=== PATIENT | male | born 1980 | race Caucasian/White ===

== ENCOUNTER 2016-07-16 09:27 | Emergency (ER) | payer OTHER ==
[~2016-07-16] VITALS: Ht 170.2 cm; Wt 75.0 kg
[2016-07-16 09:29] VITALS: BP 126/89; PULSE 101; RESP 18; O2SAT 98
--- NOTE | 2016-07-16 09:45 | ED.REPORT ---
HPI-General Illness Date of Service Jul 16, 2016 ED Provider: Mehrdad Talbot MD This is a 36 year old male presenting to the ED seeking evaluation for alcohol detox, he has a bed at [facility] which the pt scheduled today. Also reports heroin and methamphetamine use. Denies fever, nausea, vomiting, diarrhea , cough, sore throat, abdominal pain, or headache. Denies suicidal or homicidal ideation. Nursing Notes Stated Complaint: CRISIS CENTER BED AT 11 AM Chief Complaint: Substance Abuse Nursing Notes Reviewed: Yes Allergies: Coded Allergies: Penicillins (Verified Allergy, Severe, 07/16/16) General Time Seen by MD: 09:43 Chief Complaint Other Hx Obtained From: Patient Arrived By: Walk-in Sudden in Onset?: Yes Symptom Duration: Since onset Severity: Current: No pain currently Pertinent Negative: Pt denies other symptoms Recent Healthcare: No recent doctor visit, No recent hospitalization Similar Sx Previous: No Past Medical History Past Medical History Polysubstance abuse Alcohol abuse Smoking History Current Every Day Smoker Social History Heroin Alcohol Use: >5 per day Drug Use: Meth Ambulatory Status Independent Review of Systems Full Review of Systems Constitutional: Denies: Chills, Fever Respiratory: Denies: Non-productive cough, Shortness of breath GI: Denies: Abdominal pain, Nausea, Vomiting Neurologic: Denies: Headache Psychiatric: Denies: Homicidal ideation, Suicidal ideation Complete sys rev & neg: except as marked. Physical Exam Vital Signs Vital Signs Date Time Temp Pulse Resp B/P Pulse Ox O2 Delivery O2 Flow Rate FiO2 07/16/16 09:29 36.3 101 18 126/89 98 Room Air Initial VS: Reviewed Head / Eyes: Atraumatic, Normocephalic, PERRL ENT: Mucous membranes moist, Conjunctiva normal, No scleral icterus Neck: Supple, Non-tender, Full range of motion Respiratory: Breath sounds normal, Clear to auscultation, No respiratory distress Cardiovascular: Regular rate & rhythm, Heart sounds normal, Intact distal pulses Extremities: Vascular intact, Neuro intact, No swelling, No tenderness Skin: Warm, Dry, No cyanosis Neurologic: Alert, Oriented, Nonfocal Psychiatric: Mood/affect normal, Behavior normal, Normal thought content General/Constitutional: Awake, Alert Re-Eval/Medical Decision Counseled Regarding: Diagnosis, Need for follow-up, When/why to return to ED Discharge & Departure Primary Impression: Alcohol abuse Additional Impression: Depression Depression Type: unspecified Qualified Code: F32.9 - Major depressive disorder, single episode, unspecified Disposition: Home Discharge Condition All VS Reviewed: Yes Condition: Stable Patient Instructions: Abuse of Alcohol (ED) Additional Instructions: Go directly to [facility]. Take Ativan (lorazepam) as prescribed. Return to the emergency department for any new or worsening symptoms Referrals: Kg Cuevas MD (PCP) Scribe Attestation Portions of this note were transcribed by Nika Gao. I, Dr. Talbot personally performed the history, physical exam and medical decision-making; I reviewed and confirmed the accuracy of the information in the transcribed note. Signed by: danya Dykes. 07/16/2016, 10:00. Mehrdad Talbot MD Jul 16, 2016 09:45 NIKA GAO Jul 16, 2016 09:54
[2016-07-16] MEDS ORDERED: LORA-303 PO (10:21)
[2016-07-16 10:52] VITALS: BP 108/67; PULSE 85; RESP 16; O2SAT 97
== END 2016-07-16 10:55 | disposition home or self-care (01) ==
LOC: SED 09:27
DX: F10.10 Alcohol abuse, uncomplicated (principal); F32.9 Major depressive disorder, single episode, unspecified; F17.210 Nicotine dependence, cigarettes, uncomplicated; Z88.0 Allergy status to penicillin

== ENCOUNTER 2016-11-18 07:59 | Emergency (ER) | payer OTHER ==
[~2016-11-18] VITALS: Ht 170.2 cm; Wt 72.7 kg
[~2016-11-18 07:59] MED LIST: LORA-303 PO
[2016-11-18 08:03] VITALS: BP 125/75; PULSE 93; RESP 18; O2SAT 96
--- NOTE | 2016-11-18 08:23 | ED.REPORT ---
HPI-General Illness Date of Service November 18, 2016 ED Provider: Jayashree Wisdom MD Patient is a 36 year old male with a history of polysubstance abuse and alcohol withdraw who presents to the ED to get medical clearance for [facility]. The patient reports that his last drink of alcohol was yesterday. He normally drinks a fifth a day, uses a 1/2gram of heroin, intermittent meth and benzodiazepines but hasn't used them for the past 4 days. Patient states that he has gone through alcohol withdraw and been through detox a few years ago. Nursing Notes Stated Complaint: CRISIS CENTER CLEARANCE Chief Complaint: Substance Abuse Nursing Notes Reviewed: Yes Allergies: Coded Allergies: Penicillins (Verified Allergy, Severe, 07/16/16) Scheduled Clonidine (Clonidine) 0.1 Mg Tablet 0.1 MG PO HS PRN for opiate withdrawal. hold BP<120/60 or HR<60 Loperamide (Loperamide) 2 Mg Capsule 2 MG PO Q4H Ondansetron ODT (Ondansetron ODT) 4 Mg Tab.rapdis 4 MG PO BID Scheduled PRN Alprazolam (Alprazolam) 1 Mg Tablet 1 MG PO see taper PRN PRN For Anxiety 1 PO q 6 hrs x 24 hrs. 1 po q 8 hrs x 24hrs 1 po q 12hrs x 24hrs Ibuprofen (Ibuprofen) 600 Mg Tablet 600 MG PO QID PRN PRN For Pain Lorazepam (Ativan) 1 Mg Tablet 1 MG PO TID PRN PRN For Anxiety Promethazine Supp (Promethazine Supp) 25 Mg Supp 25 MG RECTAL Q8H PRN PRN For Nausea General Time Seen by MD: 08:23 Chief Complaint Medical clearance Hx Obtained From: Patient Arrived By: Walk-in Sudden in Onset?: Yes Onset Occurred: Yesterday Context of Onset: EtOH use Symptom Duration: Since onset Recent Healthcare: No recent hospitalization, Recent doctor visit Similar Sx Previous: Yes Past Medical History Past Medical History Polysubstance abuse Alcohol abuse Smoking History Current Every Day Smoker Social History Heroin Alcohol Use: >5 per day Drug Use: IV drugs, Meth Ambulatory Status Independent Review of Systems Alcohol withdraw heroin withdraw Full Review of Systems Respiratory: Denies: Non-productive cough, Shortness of breath Cardiovascular: Denies: Chest pain GI: Denies: Abdominal pain, Vomiting Complete sys rev & neg: except as marked. Physical Exam Vital Signs Vital Signs Date Time Temp Pulse Resp B/P Pulse Ox O2 Delivery O2 Flow Rate FiO2 11/18/16 10:04 36.4 83 14 108/67 96 Room Air 11/18/16 08:58 83 14 108/67 96 Room Air 11/18/16 08:03 36.4 93 18 125/75 96 Initial VS: Reviewed General/Constitutional: Awake, Alert poor eye contact Head / Eyes: Atraumatic, Normocephalic, PERRL, EOMI Respiratory / Chest: Atraumatic, Breath sounds NL, Breath sounds = bilat, No respiratory distress Cardiovascular: Regular rhythm, Heart sounds NL Heart Rate / Rhythm: Positive: Tachycardia Upper Extremities Upper Extremity / MS: Atraumatic, Full range of motion multiple track cisneros with no abscess on forearms Skin: Atraumatic, Color NL, No rash, Warm, Dry Neurologic: Oriented X3, Speech NL, No motor deficits, No sensory deficits Psychiatric: Affect NL, Mood NL Interpretation & Diagnostics Lab Results Interpretation Lab Results Interpretation: Tox screen: positive for opiates, THC, methamphetamines and benzodiazepines Re-Eval/Medical Decision Time of Eval: 08:55 Re-Evaluation/Progress Note: Discussed plan for transfer to [facility] during initial interview. The patient understands and agrees to the plan. All questions were addressed. Counseled Regarding: Diagnosis, Lab results, Need for follow-up, When/why to return to ED Discharge & Departure Primary Impression: Alcohol withdrawal Complication of substance-induced condition: with unspecified complication Qualified Code: F10.239 - Alcohol dependence with withdrawal, unspecified Additional Impression: Polysubstance abuse Disposition: Home Discharge Condition All VS Reviewed: Yes Condition: Stable Patient Instructions: Abuse of Alcohol (ED), Alcohol Withdrawal (ED) Additional Instructions: You are cleared to go to [facility]. Your prescriptions were electronically sent to the [facility] in [place]. Hopefully you will find treatment helpful in getting to sober. I've given you information to contact [facility], suboxone clinic, to help with the heroin issues once you have detoxed from alcohol. Good luck! Referrals: Kg Cuevas MD (PCP) Scribe Attestation Portions of this note were transcribed by Stacie Marie. I, Dr. Wisdom personally performed the history, physical exam and medical decision-making; I reviewed and confirmed the accuracy of the information in the transcribed note. Signed by: Elli Medina, 11/18/16 and 0904 copies to: Kg Cuevas MD, Shawna L MD November 18, 2016 08:23 Magdalene Marie November 18, 2016 08:56
[2016-11-18 08:58] VITALS: BP 108/67; PULSE 83; RESP 14; O2SAT 96
[2016-11-18] MEDS ORDERED: LORazepam 1 mg Tablet PO ONE (09:05)
[2016-11-18] MEDS ORDERED: ALPR1TAB7 PO (09:59)
[2016-11-18] MEDS ORDERED: ONDA4TAB12 PO (09:59)
[2016-11-18] MEDS ORDERED: IBUP-1827 PO (09:59)
[2016-11-18] MEDS ORDERED: CLON0.1T PO (09:59)
[2016-11-18] MEDS ORDERED: PROM25SU47 RECTAL (09:59)
[2016-11-18] MEDS ORDERED: LOPE2CAP PO (09:59)
[2016-11-18 10:04] VITALS: BP 108/67; PULSE 83; RESP 14; O2SAT 96
== END 2016-11-18 10:05 | disposition home or self-care (01) ==
LOC: SED 07:59
DX: F10.239 Alcohol dependence with withdrawal, unspecified (principal); F19.10 Other psychoactive substance abuse, uncomplicated; F17.200 Nicotine dependence, unspecified, uncomplicated; Z88.0 Allergy status to penicillin

== ENCOUNTER 2016-11-21 20:29 | Emergency (ER) | payer OTHER ==
[~2016-11-21] VITALS: Ht 170.2 cm; Wt 72.7 kg
[~2016-11-21 20:29] MED LIST changes: +ALPR1TAB7 PO; +CLON0.1T PO; +IBUP-1827 PO; +LOPE2CAP PO; +ONDA4TAB12 PO; +PROM25SU47 RECTAL
[2016-11-21 20:38] VITALS: BP 113/76; PULSE 109; RESP 16; O2SAT 97
--- NOTE | 2016-11-21 21:13 | ED.REPORT ---
HPI-General Illness Date of Service November 21, 2016 ED Provider: Lamont Gordon MD A 36 year old male with a history of polysubstance abuse and current rehabilitation effort presents to the ED due to a medication request. The pt has been in Crisis for three days due to substance abuse including benzodiazepines, methamphetamine and heroin. He has been taking Clonidine twice daily but has still been unable to sleep and has been nauseated. He is requesting medications to help alleviate these symptoms. The pt has further rehabilitation scheduled beginning on 11/27/2016. Nursing Notes Stated Complaint: MED REQUEST Chief Complaint: Substance Abuse Nursing Notes Reviewed: Yes Allergies: Coded Allergies: Penicillins (Verified Allergy, Severe, 11/21/16) Scheduled Clonidine (Clonidine) 0.1 Mg Tablet 0.1 MG PO HS PRN for opiate withdrawal. hold BP<120/60 or HR<60 Loperamide (Loperamide) 2 Mg Capsule 2 MG PO Q4H Ondansetron ODT (Ondansetron ODT) 4 Mg Tab.rapdis 4 MG PO BID Scheduled PRN Alprazolam (Alprazolam) 1 Mg Tablet 1 MG PO see taper PRN PRN For Anxiety 1 PO q 6 hrs x 24 hrs. 1 po q 8 hrs x 24hrs 1 po q 12hrs x 24hrs Clonidine (Clonidine) 0.2 Mg Tablet 0.2 MG PO TID PRN PRN Withdrawal Symptoms Ibuprofen (Ibuprofen) 600 Mg Tablet 600 MG PO QID PRN PRN For Pain Ibuprofen (Ibuprofen) 600 Mg Tablet 600 MG PO QID PRN PRN For Pain Lorazepam (Ativan) 1 Mg Tablet 1 MG PO TID PRN PRN For Anxiety Ondansetron ODT (Ondansetron ODT) 8 Mg Tab.rapdis 8 MG PO QID PRN PRN For Nausea Promethazine Supp (Promethazine Supp) 25 Mg Supp 25 MG RECTAL Q8H PRN PRN For Nausea hydrOXYzine Hcl (HydrOXYzine Hcl) 25 Mg Tablet 50 MG PO TID PRN PRN anxiety General Time Seen by MD: 21:13 Chief Complaint Other (Medication request) Hx Obtained From: Patient Arrived By: Walk-in Sudden in Onset?: No Recent Healthcare: Recent doctor visit Similar Sx Previous: Yes Past Medical History Past Medical History Polysubstance abuse Alcohol abuse Past Surgical History left shoulder Smoking History Current Every Day Smoker Social History Heroin Benzodiazepines Alcohol Use: >5 per day Drug Use: IV drugs, Meth Ambulatory Status Independent Review of Systems Full Review of Systems Respiratory: Denies: Non-productive cough, Shortness of breath Cardiovascular: Denies: Chest pain GI: Reports: Nausea, Denies: Abdominal pain Musculoskeletal: Denies: Back pain Psychiatric: Reports: Insomnia Complete sys rev & neg: except as marked. Physical Exam Vital Signs Vital Signs Date Time Temp Pulse Resp B/P Pulse Ox O2 Delivery O2 Flow Rate FiO2 11/21/16 20:38 36.3 109 16 113/76 97 Room Air Initial VS: Reviewed General/Constitutional: Awake, Alert Head / Eyes: Atraumatic, Normocephalic, PERRL, EOMI ENT: Atraumatic, Airway patent, Mucous membranes moist Neck: Atraumatic, Supple, Full range of motion Respiratory / Chest: Atraumatic, No respiratory distress Cardiovascular: Heart rate NL Abdomen: Atraumatic Back: Atraumatic, Full range of motion Upper Extremities Upper Extremity / MS: Atraumatic, Full range of motion Lower Extremity / Pelvis / MS: Atraumatic, Full range of motion Skin: Atraumatic, Color NL, No rash, Warm, Dry Neurologic: Oriented X3, Speech NL, No motor deficits, No sensory deficits Psychiatric: Affect NL, Mood NL, No hallucinations, Judgment/insight NL no apparent delusions Re-Eval/Medical Decision Med Decision/Clinical Course 36-year-old withdrawing from opiates, not getting sufficient relief with clonidine at low dose at crisis. Clonidine dose increased to 0.2-3 times daily when necessary, along with Vistaril for sleep. Continue ondansetron as before. Ibuprofen if needed for aches and pains. Return to crisis Source of Hx: Old records Time of Eval: 21:13 Patient Status: Condition improved Re-Evaluation/Progress Note: Pt informed of the diagnosis and the plan for discharge during the initial interview. The pt understands and agrees with the plan. All questions are addressed at this time. Counseled Regarding: Diagnosis, Need for follow-up, When/why to return to ED Discharge & Departure Primary Impression: Substance abuse Additional Impression: Opioid withdrawal Disposition: Home Discharge Condition All VS Reviewed: Yes Condition: Stable Patient Instructions: Opioid Withdrawal (ED) Additional Instructions: Begin clonidine up to three times daily as needed for withdrawal symptoms. Hydroxyzine three times daily as needed for anxiety or sleep Zofran up to four times daily if needed for nausea Ibuprofen as needed for pain Good luck with your recovery. Referrals: [facility] Scribe Attestation Portions of this note were transcribed by Mayra Humphrey. I, Dr. Gordon personally performed the history, physical exam and medical decision-making; I reviewed and confirmed the accuracy of the information in the transcribed note. Signed by: Elli Ragsdale, 11/21/16 and 2131. copies to: [facility] ; [facility] Lamont Gordon MD November 21, 2016 21:13 MAYRA HUMPHREY November 21, 2016 21:23
[2016-11-21] MEDS ORDERED: _Ondansetron ODT 4 mg Tablet PO PRN (21:20)
[2016-11-21] MEDS ORDERED: CLON0.2T PO (21:23)
[2016-11-21] MEDS ORDERED: HYDR-656 PO (21:25)
[2016-11-21] MEDS ORDERED: IBUP-1827 PO (21:25)
[2016-11-21] MEDS ORDERED: ONDA8TAB10 PO (21:26)
== END 2016-11-21 21:37 | disposition home or self-care (01) ==
LOC: SED 20:29
DX: F11.23 Opioid dependence with withdrawal (principal); F19.10 Other psychoactive substance abuse, uncomplicated; F17.200 Nicotine dependence, unspecified, uncomplicated; Z88.0 Allergy status to penicillin
CPT/HCPCS: 99283; Q0177

== ENCOUNTER 2017-02-24 20:34 | Emergency (ER) | payer OTHER ==
[~2017-02-24] VITALS: Ht 170.2 cm; Wt 72.0 kg
[~2017-02-24 20:34] MED LIST changes: +CLON0.2T PO; +HYDR-656 PO; +ONDA8TAB10 PO
[2017-02-24 20:41] VITALS: BP 138/81; PULSE 107; RESP 20; O2SAT 96
--- NOTE | 2017-02-24 21:09 | ED.REPORT ---
HPI-General Illness Date of Service Feb 24, 2017 ED Provider: Mateusz Vail DO Pt is a 37 y/o male with a history of meth and heroin abuse who presents to the ED with a substance relapse onset 7 days ago. He states he was at the ED on November 17, 2016 for prior substance abuse, in which he was sent to [facility] for a 10-day detox and received one-month treatment. He reports that he was sober for three months after treatment, but relapsed due to stressful events in his life. He wishes to go to [facility] to undergo detox again. He denies homicidal or suicidal ideation. Nursing Notes Stated Complaint: DETOX Chief Complaint: Substance Abuse Nursing Notes Reviewed: Yes Allergies: Coded Allergies: Penicillins (Verified Allergy, Severe, 11/21/16) Scheduled Clonidine (Clonidine) 0.1 Mg Tablet 0.1 MG PO HS PRN for opiate withdrawal. hold BP<120/60 or HR<60 Loperamide (Loperamide) 2 Mg Capsule 2 MG PO Q4H Ondansetron ODT (Ondansetron ODT) 4 Mg Tab.rapdis 4 MG PO BID Scheduled PRN Alprazolam (Alprazolam) 1 Mg Tablet 1 MG PO see taper PRN PRN For Anxiety 1 PO q 6 hrs x 24 hrs. 1 po q 8 hrs x 24hrs 1 po q 12hrs x 24hrs Clonidine (Clonidine) 0.2 Mg Tablet 0.2 MG PO TID PRN PRN Withdrawal Symptoms Ibuprofen (Ibuprofen) 600 Mg Tablet 600 MG PO QID PRN PRN For Pain Ibuprofen (Ibuprofen) 600 Mg Tablet 600 MG PO QID PRN PRN For Pain Lorazepam (Ativan) 1 Mg Tablet 1 MG PO TID PRN PRN For Anxiety Ondansetron ODT (Ondansetron ODT) 8 Mg Tab.rapdis 8 MG PO QID PRN PRN For Nausea Promethazine Supp (Promethazine Supp) 25 Mg Supp 25 MG RECTAL Q8H PRN PRN For Nausea hydrOXYzine Hcl (HydrOXYzine Hcl) 25 Mg Tablet 50 MG PO TID PRN PRN anxiety General Time Seen by MD: 21:09 Chief Complaint Other (substance abuse) Hx Obtained From: Patient Arrived By: Walk-in Sudden in Onset?: No Onset Occurred: 1 week ago Severity: Current: No pain currently Severity: Maximum: No pain Context Related History: Reports Drug use/abuse suspected Recent Healthcare: No recent doctor visit, No recent hospitalization Similar Sx Previous: Yes Past Medical History Past Medical History Polysubstance abuse Alcohol abuse Past Surgical History left shoulder Smoking History Current Every Day Smoker Social History Heroin Benzodiazepines Alcohol Use: >5 per day Drug Use: IV drugs, Meth Ambulatory Status Independent Review of Systems Substance abuse Full Review of Systems Psychiatric: Denies: Homicidal ideation, Suicidal ideation Complete sys rev & neg: except as marked. Physical Exam Vital Signs Vital Signs Date Time Temp Pulse Resp B/P Pulse Ox O2 Delivery O2 Flow Rate FiO2 02/25/17 00:13 36.7 83 118/85 95 Room Air 02/24/17 20:41 36.6 107 20 138/81 96 Room Air Initial VS: Reviewed Head / Eyes: Atraumatic, Normocephalic Neck: Supple, Full range of motion Extremities: Vascular intact, Neuro intact, No swelling, No tenderness Skin: Warm, Dry, No cyanosis Neurologic: Alert, Oriented, Nonfocal General/Constitutional: Awake, Alert Respiratory / Chest: Atraumatic, Breath sounds NL, Breath sounds = bilat, No respiratory distress Cardiovascular: Heart rate NL, Regular rhythm, Heart sounds NL Abdomen: Soft, Non-tender Psychiatric: Affect NL, Mood NL Abnormal Mood/Affect: Positive: Anxious Interpretation & Diagnostics Lab Results Interpretation Test 02/24/17 22:20 Hold Urine Received (Received) Re-Eval/Medical Decision Med Decision/Clinical Course Patient is moderately anxious, but considered medically stable to go to [facility]. There will be a male bed available at roughly 9 AM. Rudy will call out there first thing in the morning or come back to the emergency department for assistance in getting sobering services. He is given a single dose of lorazepam and helped his anxiety. He assures me he does not plan on abusing opiates tonight. He will come back as instructed. Warnings given. Source of Hx: Old records Time of Eval: 20:20 Patient Status: Condition improved Re-Evaluation/Progress Note: Pt rechecked. He is resting comfortably. Counseled Regarding: Diagnosis, Lab results, Need for follow-up, When/why to return to ED Discharge & Departure Shift Change Sign-Out Response to Therapy: Improved Primary Impression: Heroin abuse Additional Impression: Amphetamine abuse Disposition: Home Discharge Condition All VS Reviewed: Yes Condition: Stable Patient Instructions: Methamphetamine Abuse (DC), Opioid Dependence (DC) Additional Instructions: Rest tonight. You have received sedating medications so do not drive. Do not use any more heroin as the combination of lorazepam and heroin can be life- threatening. Do not abuse methamphetamines. Come back to the emergency department at 8 AM for screening for sobering services. They will apparently have a bed available for you at 9 AM. You can also call out there and see if they will take him directly but if you come back here we may be able to assist pharmacologically. Do not hesitate to return if you feel that you are having a psychiatric or medical emergency. Also, you may call [facility] if you believe you are suffering from opioid dependence. Referrals: [facility] (PCP) [facility] Scribe Attestation Portions of this note were transcribed by Erika Christensen. I, Dr. Vail, personally performed the history, physical exam and medical decision-making; I reviewed and confirmed the accuracy of the information in the transcribed note. copies to: Mateusz Duvall DO Feb 24, 2017 21:09 Erika Christensen Feb 24, 2017 21:20
[2017-02-24] MEDS ORDERED: LORazepam 1 mg Tablet PO ONE (21:20)
[2017-02-25 00:13] VITALS: BP 118/85; PULSE 83; O2SAT 95
[2017-02-25] MEDS ORDERED: LORA-303 PO (11:24)
[2017-02-25] MEDS ORDERED: CLON0.1T PO (11:24)
[2017-02-25] MEDS ORDERED: ONDA4TAB9 PO (11:24)
== END 2017-02-25 00:15 | disposition home or self-care (01) ==
LOC: SED 20:34
DX: F11.10 Opioid abuse, uncomplicated (principal); F15.10 Other stimulant abuse, uncomplicated; F41.9 Anxiety disorder, unspecified; F17.200 Nicotine dependence, unspecified, uncomplicated; Z98.890 Other specified postprocedural states; Z88.0 Allergy status to penicillin

== ENCOUNTER 2017-02-25 08:03 | Emergency (ER) | payer OTHER ==
[~2017-02-25] VITALS: Ht 170.2 cm; Wt 77.3 kg
[2017-02-25 08:09] VITALS: BP 111/75; PULSE 74; RESP 16; O2SAT 100
--- NOTE | 2017-02-25 09:56 | ED.REPORT ---
HPI-Overdose/Alcohol Toxicity Date of Service Feb 25, 2017 ED Provider: Gerson Reyes DO Pt is a 37 y/o male w/ a hx of polysubstance abuse presenting to the ED with request for medical clearance for detox. The patient uses heroin and is requesting to be medically cleared prior to entering a detox facility. No significant symptoms of withdrawal at this time. Nursing Notes Stated Complaint: DETOX Chief Complaint: Substance Abuse Nursing Notes Reviewed: Yes Allergies: Coded Allergies: Penicillins (Verified Allergy, Severe, 11/21/16) Scheduled Clonidine (Clonidine) 0.1 Mg Tablet 0.1 MG PO HS PRN for opiate withdrawal. hold BP<120/60 or HR<60 Clonidine (Clonidine) 0.1 Mg Tablet 0.1 MG PO TID Loperamide (Loperamide) 2 Mg Capsule 2 MG PO Q4H Ondansetron ODT (Ondansetron ODT) 4 Mg Tab.rapdis 4 MG PO BID Scheduled PRN Alprazolam (Alprazolam) 1 Mg Tablet 1 MG PO see taper PRN PRN For Anxiety 1 PO q 6 hrs x 24 hrs. 1 po q 8 hrs x 24hrs 1 po q 12hrs x 24hrs Clonidine (Clonidine) 0.2 Mg Tablet 0.2 MG PO TID PRN PRN Withdrawal Symptoms Ibuprofen (Ibuprofen) 600 Mg Tablet 600 MG PO QID PRN PRN For Pain Ibuprofen (Ibuprofen) 600 Mg Tablet 600 MG PO QID PRN PRN For Pain Lorazepam (Ativan) 1 Mg Tablet 1 MG PO TID PRN PRN For Anxiety Lorazepam (Ativan) 1 Mg Tablet 1 MG PO TID PRN PRN For Anxiety Ondansetron ODT (Ondansetron ODT) 8 Mg Tab.rapdis 8 MG PO QID PRN PRN For Nausea Ondansetron ODT (Zofran ODT) 4 Mg Tablet 4 MG PO Q4H PRN PRN For Nausea Promethazine Supp (Promethazine Supp) 25 Mg Supp 25 MG RECTAL Q8H PRN PRN For Nausea hydrOXYzine Hcl (HydrOXYzine Hcl) 25 Mg Tablet 50 MG PO TID PRN PRN anxiety General Time Seen by Provider: 10:20 Chief Complaint Other (detox) Hx Obtained From: Patient Arrived By: Walk-in Onset Occurred: Onset unknown Severity: Current: No pain currently Severity: Maximum: No pain Recent Healthcare: Previous diagnosis Similar Sx Previous: Yes Past Medical History Past Medical History Polysubstance abuse Alcohol abuse Past Surgical History left shoulder Smoking History Current Every Day Smoker Social History Heroin Benzodiazepines Alcohol Use: >5 per day Drug Use: IV drugs, Meth Ambulatory Status Independent Review of Systems Neurologic: Denies: Change LOC Complete sys rev & neg: except as marked. Physical Exam Initial Vital Signs Vital Signs (First) Date Time Temp Pulse Resp B/P Pulse Ox O2 Delivery O2 Flow Rate FiO2 02/25/17 08:09 35.2 74 16 111/75 100 02/25/17 13:35 Room Air Initial VS: Reviewed, Vital signs normal Head / Eyes: Atraumatic, Normocephalic ENT: Mucous membranes moist, Conjunctiva normal Neck: Full range of motion Extremities: Vascular intact, Neuro intact Skin: Warm, Dry, No cyanosis General/Constitutional: Awake, Alert, No acute distress, Cooperative, Not toxic appearing Appearance / Presentation: Positive: Uncomfortable Respiratory / Chest: Breath sounds NL, Breath sounds = bilat, No respiratory distress, No rales, No rhonchi, No wheezing Cardiovascular: Heart rate NL, Regular rhythm, Heart sounds NL, No murmurs Abdomen: Soft, Non-tender Neurologic: Oriented X3, Speech NL, No motor deficits Psychiatric: Affect NL, Mood NL Interpretation & Diagnostics Lab Results Interpretation Test 02/25/17 11:34 Hold Urine Received (Received) Re-Eval/Medical Decision Med Decision/Clinical Course Patient is a good candidate for outpatient detox. clonidine, zofran, ativan will be prescribed. Re-Evaluation/Progress : Time of Eval: 11:26 Re-Evaluation/Progress Note: Pt rechecked. Informed pt of plan for discharge. Pt understands and agrees with plan for discharge. F/U instructions and RTER warnings given. All questions addressed. Consultation : Note: crisis center states bed is available at 1600. Counseled Regarding: Diagnosis, Need for follow-up, When/why to return to ED Discharge & Departure Impression: Primary Impression: Polysubstance abuse )( Condition at Discharge: No danger to self, No danger to others, No suicidal ideation, No homicidal ideation, Clear for psych facility, Clear for drug rehab Disposition: Home (psych facility) Discharge Condition All VS Reviewed: Yes Condition: Stable Additional Instructions: Go directly to crisis respite. Take Ativan, Zofran, clonidine for symptoms. Return to the ER as needed if worse. Referrals: [facility] (PCP) Scribe Attestation Portions of this note were transcribed by Darrin Stallworth. I, Dr. Reyes personally performed the history, physical exam and medical decision-making; I reviewed and confirmed the accuracy of the information in the transcribed note. Gerson Reyes DO Feb 25, 2017 09:56 DARRIN STALLWORTH Feb 25, 2017 10:22
[2017-02-25] MEDS ORDERED: cloNIDine 0.1 mg Tablet PO ONE (11:20)
[2017-02-25] MEDS ORDERED: CLON0.1T PO (11:24)
[2017-02-25] MEDS ORDERED: LORA-303 PO (11:24)
[2017-02-25] MEDS ORDERED: ONDA4TAB9 PO (11:24)
[2017-02-25 13:35] VITALS: BP 96/60; PULSE 59; RESP 12; O2SAT 95
[2017-02-25 15:20] VITALS: BP 101/61; PULSE 63; RESP 14; O2SAT 97
[2017-02-25 15:38] VITALS: BP 101/61; PULSE 63; RESP 14; O2SAT 97
== END 2017-02-25 15:35 | disposition home or self-care (01) ==
LOC: SED 08:03
DX: F19.10 Other psychoactive substance abuse, uncomplicated (principal); F17.200 Nicotine dependence, unspecified, uncomplicated; Z88.0 Allergy status to penicillin